=== PATIENT | female | born 1960 | race Asian ===

== ENCOUNTER 2019-12-08 13:19 | Emergency (ER) | payer MEDICAID ==
[~2019-12-08] VITALS: Ht 149.9 cm; Wt 59.0 kg
[2019-12-08 13:43] VITALS: BP_SYST 123
[2019-12-08] MEDS ORDERED: ACETAMINOPHEN 500 MG TABLET PO ONE (15:00)
[2019-12-08] MEDS ORDERED: BACITRACIN 1 GM OINT TP ONE (15:00)
[2019-12-08] MEDS ORDERED: DIPH-TET-PERTUS Vaccine 0.5 ML VIAL (ADACEL) I.M. ONE (15:00)
[2019-12-08 16:16] VITALS: BP_SYST 123
== END 2019-12-08 16:18 | disposition home or self-care (01) ==
LOC: SED 13:19
DX: S43.491A Other sprain of right shoulder joint, initial encounter (principal); S00.83XA Contusion of other part of head, initial encounter; S80.211A Abrasion, right knee, initial encounter; E78.5 Hyperlipidemia, unspecified; Z90.49 Acquired absence of other specified parts of digestive tract; W10.8XXA Fall (on) (from) other stairs and steps, initial encounter; Y93.01 Activity, walking, marching and hiking; Y92.89 Other specified places as the place of occurrence of the external cause; Y99.8 Other external cause status
CPT/HCPCS: 70450-TC; 73030; 73564; 90715; 99284